=== PATIENT | male | born 1995 | race Caucasian/White ===

== ENCOUNTER 2023-04-14 01:57 | Emergency (ER) | payer OTHER ==
[2023-04-14 02:06] VITALS: BP 125/70; PULSE 55; RESP 18; TEMP 99.1; BMI 24.3
[2023-04-14] MEDS ORDERED: IBUPROFEN 600 MG TABLET (FP) PO ONE ×2 (02:14→02:17)
== END 2023-04-14 02:20 | disposition home or self-care (01) ==
LOC: FER 01:57
DX: S39.012A Strain of muscle, fascia and tendon of lower back, initial encounter (principal); S16.1XXA Strain of muscle, fascia and tendon at neck level, initial encounter; M54.2 Cervicalgia; M54.6 Pain in thoracic spine; V89.2XXA Person injured in unspecified motor-vehicle accident, traffic, initial encounter; Y93.I9 Activity, other involving external motion; Y92.410 Unspecified street and highway as the place of occurrence of the external cause
CPT/HCPCS: 99283-25

== ENCOUNTER 2024-01-27 05:30 | Emergency (ER) | payer OTHER ==
[2024-01-27 05:52] VITALS: BP 123/50; PULSE 66; RESP 18; TEMP 98.8; BMI 24.3
== END 2024-01-27 06:48 | disposition home or self-care (01) ==
LOC: FER 05:30
DX: S46.912A Strain of unspecified muscle, fascia and tendon at shoulder and upper arm level, left arm, initial encounter (principal); S86.912A Strain of unspecified muscle(s) and tendon(s) at lower leg level, left leg, initial encounter; W50.0XXA Accidental hit or strike by another person, initial encounter; Y93.72 Activity, wrestling
CPT/HCPCS: 73070-TC-LT-FY; 73562-TC-LT-FY; 99284-25